=== PATIENT | male | born 1945 | race African-American/Black ===

== ENCOUNTER 2016-11-26 16:58 | Emergency (ER) | payer MEDICARE ==
[~2016-11-26] VITALS: Ht 175.3 cm; Wt 82.7 kg
[~2016-11-26 16:58] MED LIST: ASPI81TA39 PO; ATOR40TA28 PO; CYAN1000I SQ; GLIP10 PO; LEVE500T53 PO; LEVO25TA9 PO; LISI1TAB13 PO; METF500T4 PO; METO50 PO; NIFE10 PO
[2016-11-26] MEDS ORDERED: INSLAN SQ (17:18)
[2016-11-26 17:22] LABS: GLUCOSE,POINT OF CARE 175 MG/DL (70-110)
[2016-11-26] MEDS ORDERED: HYDROCODONE/ACETAMINOPHEN 5-325 MG TABLET PO ONE (18:30)
[2016-11-26 18:43] LABS: BASOPHILS % (AUTO) 0.5 % (0.0-2.0); HEMATOCRIT 35.3 % (41-53); LYMPHOCYTES # (AUTO) 1.6 K/uL (1.0-4.8); LYMPHOCYTES % (AUTO) 12.9 % (22.0-44.0); MEAN CORPUSCULAR HEMOGLOBIN 30.7 pg (26.0-34.0); MEAN CORPUSCULAR HGB CONC 33.9 G/dL (31.0-37.0); MEAN CORPUSCULAR VOLUME 91 fL (80-100); MONOCYTES # (AUTO) 0.7 K/uL (0.1-1.0); MONOCYTES % (AUTO) 5.7 % (2.0-9.0); NEUTROPHILS # (AUTO) 9.6 K/uL (1.8-7.7); NEUTROPHILS % (AUTO) 78.9 % (40.0-70.0); PLATELET COUNT (AUTO) 253 K/uL (150-450); RED BLOOD CELL COUNT(AUTO) 3.89 MIL/uL (4.50-5.90); RED CELL DISTRIBUTION WIDTH 13.8 % (11.5-14.5); WHITE BLOOD COUNT (AUTO) 12.2 K/uL (4.5-11.0)
[2016-11-26 18:52] LABS: CALCIUM, TOTAL 9.2 mg/dL (8.8-10.5); CREATININE 1.72 mg/dL (0.60-1.30)
[2016-11-26 18:57] LABS: ALBUMIN 3.4 g/dL (3.4-5.0); BILIRUBIN,TOTAL 0.3 mg/dL (0.1-1.0)
[2016-11-26 19:36] VITALS: BP 141/71
[2016-11-26 22:23] LABS: ERYTHROCYTE SEDIMENTATION RATE 45 MM/HR (0-15)
== END 2016-11-26 21:13 | disposition home or self-care (01) ==
LOC: EMS 16:59
DX: M25.521 Pain in right elbow (principal); I10 Essential (primary) hypertension; E11.9 Type 2 diabetes mellitus without complications; E78.00 Pure hypercholesterolemia, unspecified; E03.9 Hypothyroidism, unspecified; F17.210 Nicotine dependence, cigarettes, uncomplicated; Z79.4 Long term (current) use of insulin
CPT/HCPCS: 82962; 85651; 86140; 99285

== ENCOUNTER 2017-06-18 08:30 | Inpatient (IN) | payer MEDICARE, OTHER ==
[~2017-06-18] VITALS: Ht 175.3 cm; Wt 80.9 kg
[~2017-06-18 08:30] MED LIST changes: +CYAN100056 SQ; -CYAN1000I SQ; +INSLAN SQ; -METF500T4 PO; +METF500T6 PO
[2017-06-18 08:42] LABS: GLUCOSE,POINT OF CARE 92 MG/DL (70-110)
[2017-06-18] MEDS ORDERED: SENN-175 PO (08:48)
[2017-06-18] MEDS ORDERED: ALFU10TA30 PO (08:48)
[2017-06-18] MEDS ORDERED: LEVO150 PO (08:48)
[2017-06-18] MEDS ORDERED: NIFE60TA71 PO (08:48)
[2017-06-18] MEDS ORDERED: CYCL10 PO (08:48)
[2017-06-18] MEDS ORDERED: GABA-529 PO (08:48)
[2017-06-18] MEDS ORDERED: METO50 PO (08:48)
[2017-06-18] MEDS ORDERED: ASPI-891 PO (08:48)
[2017-06-18 09:43] LABS: BASOPHILS % (AUTO) 0.6 % (0.0-2.0); EOSINOPHILS % (AUTO) 4.1 % (1.0-6.0); HEMATOCRIT 36.3 % (41-53); HEMOGLOBIN 12.3 g/dL (13.5-17.5); LYMPHOCYTES # (AUTO) 1.9 K/uL (1.0-4.8); LYMPHOCYTES % (AUTO) 22.4 % (22.0-44.0); MEAN CORPUSCULAR HEMOGLOBIN 30.2 pg (26.0-34.0); MEAN CORPUSCULAR HGB CONC 33.9 G/dL (31.0-37.0); MEAN CORPUSCULAR VOLUME 89 fL (80-100); MONOCYTES # (AUTO) 0.5 K/uL (0.1-1.0); MONOCYTES % (AUTO) 5.5 % (2.0-9.0); NEUTROPHILS # (AUTO) 5.7 K/uL (1.8-7.7); NEUTROPHILS % (AUTO) 67.4 % (40.0-70.0); PLATELET COUNT (AUTO) 233 K/uL (150-450); RED BLOOD CELL COUNT(AUTO) 4.07 MIL/uL (4.50-5.90); RED CELL DISTRIBUTION WIDTH 13.9 % (11.5-14.5)
[2017-06-18 10:02] LABS: ANION GAP 8 mmol/L (8-16); CALCIUM, TOTAL 9.2 mg/dL (8.8-10.5); CARBON DIOXIDE 25 mmol/L (22-29); CHLORIDE 107 mmol/L (98-107); CREATININE 1.72 mg/dL (0.60-1.30); GLOMERULAR FILTR. RATE CALC 48 mL/min (>60); GLUCOSE,RANDOM 113 mg/dL (70-110); POTASSIUM 4.1 mmol/L (3.5-5.1); SODIUM SERUM 140 mmol/L (136-145); UREA NITROGEN, BLOOD 22 mg/dL (7-18)
[2017-06-18 10:08] LABS: ALANINE AMINOTRANSFERASE 31 U/L (12-78); ALBUMIN 2.9 g/dL (3.4-5.0); ALKALINE PHOSPHATASE 101 U/L (46-116); ASPARTATE AMINOTRANSFERASE 20 U/L (15-37); BILIRUBIN,TOTAL 0.1 mg/dL (0.1-1.0); CREATINE KINASE, TOTAL 74 U/L (39-308); TOTAL PROTEIN, SERUM 7.3 g/dL (6.4-8.2)
[2017-06-18 10:10] LABS: B-TYPE NATRIURETIC PEPTIDE 113 pg/mL (0-100)
[2017-06-18] MEDS ORDERED: SODIUM CHLORIDE 0.9% 250 ML IV ONE (10:45)
[2017-06-18 11:55] LABS: APPEARANCE,URINE CLEAR (CLEAR); BILIRUBIN,URINE NEGATIVE (NEGATIVE); GLUCOSE, URINE (UA) NEGATIVE (NEGATIVE); KETONES,URINE NEGATIVE (NEGATIVE); LEUKOCYTE ESTERASE ,URINE NEGATIVE (NEGATIVE); NITRATE,URINE NEGATIVE (NEGATIVE); OCCULT BLOOD,URINE NEGATIVE (NEGATIVE); PROTEIN,URINE NEGATIVE (NEGATIVE); UROBILINOGEN,URINE 0.2 mg/dL (<=1.0)
[2017-06-18 16:01] VITALS: BP 155/69
[2017-06-18] MEDS ORDERED: BISACODYL 10 MG RECTAL RECTAL SUPPOSITORY PR PRN (18:45)
[2017-06-18] MEDS ORDERED: IPRATROPIUM BROMIDE 0.5 MG/2.5 ML NEB SOLUTION NEB PRN (18:45)
[2017-06-18] MEDS ORDERED: ACETAMINOPHEN 325 MG TABLET PO PRN (18:45)
[2017-06-18] MEDS ORDERED: MORPHINE SULFATE 4 MG/ML SYRINGE IVP PRN (18:45)
[2017-06-18] MEDS ORDERED: HYDROCODONE/ACETAMINOPHEN 5-325 MG TABLET PO PRN (18:45)
[2017-06-18] MEDS ORDERED: ZOLPIDEM TARTRATE 5 MG TABLET PO PRN (18:45)
[2017-06-18] MEDS ORDERED: ALBUTEROL SULFATE 2.5 MG/0.5 ML NEB SOLUTION NEB PRN (18:45)
[2017-06-18] MEDS ORDERED: ONDANSETRON HCL 4 MG/2 ML VIAL IVP PRN (18:45)
[2017-06-18] MEDS ORDERED: CYCLOBENZAPRINE HCL 10 MG TABLET PO PRN (18:45)
[2017-06-18] MEDS ORDERED: MAGNESIUM HYDROXIDE SUSPENSION 30 ML UDCUP PO PRN (18:45)
[2017-06-18 20:17] VITALS: BP 146/74
[2017-06-18] MEDS: METOPROLOL TARTRATE 50 MG TABLET PO SCH (21:00)
[2017-06-18] MEDS ORDERED: SENNA 187 MG TABLET PO SCH (21:00)
[2017-06-18] MEDS ORDERED: ALFUZOSIN HCL 10 MG ER TABLET PO SCH (21:00)
[2017-06-18] MEDS: LevETIRAcetam 500 MG TABLET PO SCH (21:45)
[2017-06-18] MEDS: DOCUSATE SODIUM 100 MG CAPSULE PO SCH (21:45)
[2017-06-18] MEDS: GABAPENTIN 100 MG CAPSULE PO SCH (21:47)
[2017-06-18] MEDS: NIFEdipine 60 MG ER TABLET PO SCH (21:56)
[2017-06-18] MEDS: INSULIN GLARGINE,HUM.REC.ANLOG 100 UNITS/ML SQ SCH (22:14)
[2017-06-18] MEDS: HEPARIN SODIUM,PORCINE 5,000 UNITS/ML VIAL SQ SCH (23:37)
[2017-06-19 00:14] VITALS: BP 125/52
[2017-06-19 04:57] VITALS: BP 111/58
[2017-06-19 06:03] LABS: GLUCOMETER DEV NAME(LOC) 5S 1M; GLUCOSE,POINT OF CARE 141 MG/DL (70-110)
[2017-06-19] MEDS: GlipiZIDE 10 MG TABLET PO SCH ×2 (06:10→17:57)
[2017-06-19] MEDS ORDERED: LEVOTHYROXINE SODIUM 150 MCG TABLET PO SCH (06:30)
[2017-06-19 08:32] VITALS: BP 124/51
[2017-06-19] MEDS: LevETIRAcetam 500 MG TABLET PO SCH (08:58)
[2017-06-19] MEDS: DOCUSATE SODIUM 100 MG CAPSULE PO SCH (08:59)
[2017-06-19] MEDS: GABAPENTIN 100 MG CAPSULE PO SCH ×2 (08:59→16:37)
[2017-06-19] MEDS ORDERED: ATORVASTATIN CALCIUM 40 MG TABLET PO SCH (09:00)
[2017-06-19] MEDS: HEPARIN SODIUM,PORCINE 5,000 UNITS/ML VIAL SQ SCH ×2 (09:00→16:37)
[2017-06-19] MEDS ORDERED: PANTOPRAZOLE SODIUM 40 MG/VIAL IVP SCH (09:00)
[2017-06-19] MEDS: NIFEdipine 60 MG ER TABLET PO SCH (09:00)
[2017-06-19] MEDS ORDERED: ASPIRIN 325 MG EC TABLET PO SCH (09:00)
[2017-06-19] MEDS: METOPROLOL TARTRATE 50 MG TABLET PO SCH (11:43)
[2017-06-19] MEDS: INSULIN GLARGINE,HUM.REC.ANLOG 100 UNITS/ML SQ SCH (11:49)
[2017-06-19 13:38] LABS: GLUCOMETER DEV NAME(LOC) 5N 2S; GLUCOSE,POINT OF CARE 225 MG/DL (70-110)
[2017-06-19 15:26] VITALS: BP 107/54
[2017-06-19] MEDS ORDERED: METO25 PO (19:03)
[2017-06-19 20:02] LABS: GLUCOMETER DEV NAME(LOC) 5N 1P; GLUCOSE,POINT OF CARE 72 MG/DL (70-110)
[2017-06-19 20:03] LABS: GLUCOMETER DEV NAME(LOC) 5N 1P; GLUCOSE,POINT OF CARE 130 MG/DL (70-110)
[2017-06-19 20:03] LABS: GLUCOMETER DEV NAME(LOC) 5N 1P; GLUCOSE,POINT OF CARE 195 MG/DL (70-110)
== END 2017-06-19 20:00 | disposition home or self-care (01) | DRG 74 ==
LOC: EMS 08:31 → 5N 14:31 → 5S 19:00
PROVIDERS: ADMIT Hospitalist; ATTEND Hospitalist
DX: G90.8 Other disorders of autonomic nervous system (principal); E44.0 Moderate protein-calorie malnutrition; E11.9 Type 2 diabetes mellitus without complications; G40.909 Epilepsy, unspecified, not intractable, without status epilepticus; E03.9 Hypothyroidism, unspecified; F17.210 Nicotine dependence, cigarettes, uncomplicated; E78.00 Pure hypercholesterolemia, unspecified; I10 Essential (primary) hypertension; Z79.82 Long term (current) use of aspirin; Z79.899 Other long term (current) drug therapy; Z79.4 Long term (current) use of insulin; Z68.26 Body mass index [BMI] 26.0-26.9, adult
CPT/HCPCS: 70450; 93005; 93306; 93880; 99285; C9113; J1644; J1815; J7050

== ENCOUNTER 2018-10-05 23:06 | Emergency (ER) | payer MEDICARE, OTHER ==
[~2018-10-05 23:06] MED LIST changes: +ALFU10TA30 PO; +ASPI-891 PO; -ASPI81TA39 PO; -CYAN100056 SQ; +CYCL10 PO; +GABA-529 PO; +LEVO150 PO; -LEVO25TA9 PO; -LISI1TAB13 PO; -METF500T6 PO; +METO25 PO; -METO50 PO; -NIFE10 PO; +NIFE60TA71 PO; +SENN-176 PO
[2018-10-05] MEDS ORDERED: CALCIUM CHLORIDE 100 MG/ML 10 ML SYRINGE IVP ONE (23:08)
[2018-10-05] MEDS ORDERED: SODIUM BICARBONATE [ADULT] 8.4% 50 MEQ/50 ML SYRINGE IVP ONE (23:08)
[2018-10-05] MEDS ORDERED: EPINEPHrine 1:10,000 [1 MG/10 ML] SYRINGE IVP ONE ×2 (23:08)
[2018-10-05] MEDS ORDERED: AMIODARONE HCL 50 MG/ML 3 ML VIAL IV ONE (23:08)
[2018-10-05 23:20] LABS: GLUCOSE,POINT OF CARE 113 MG/DL (70-110)
[2018-10-05] MEDS ORDERED: NOREPINEPHRINE 4 MG/D5%-WATER 250 ML IV PRN (23:30)
== END 2018-10-06 00:50 | disposition expired ==
LOC: EMS 23:07
DX: I46.9 Cardiac arrest, cause unspecified (principal); E11.9 Type 2 diabetes mellitus without complications; E78.00 Pure hypercholesterolemia, unspecified; I10 Essential (primary) hypertension; E03.9 Hypothyroidism, unspecified; F17.210 Nicotine dependence, cigarettes, uncomplicated; Z79.82 Long term (current) use of aspirin; Z79.4 Long term (current) use of insulin
CPT/HCPCS: 31500; 82962; 92950; 99291; J0171; J0282; J3490 ×2